=== PATIENT | female | born 1980 | race Caucasian/White ===

== ENCOUNTER 2021-03-16 12:25 | Emergency (ER) | payer OTHER ==
[~2021-03-16] VITALS: Ht 162.6 cm; Wt 59.0 kg
[2021-03-16] MEDS ORDERED: ZYPREXA5 MG PO (12:48)
== END 2021-03-16 13:47 | disposition home or self-care (01) ==
LOC: ED 12:25
DX: S54.12XA Injury of median nerve at forearm level, left arm, initial encounter (principal); F41.9 Anxiety disorder, unspecified; F17.200 Nicotine dependence, unspecified, uncomplicated; Z88.8 Allergy status to other drugs, medicaments and biological substances; Z88.0 Allergy status to penicillin; Z88.5 Allergy status to narcotic agent; Z79.899 Other long term (current) drug therapy
CPT/HCPCS: 99283